=== PATIENT | male | born 1955 ===

== ENCOUNTER 2018-02-22 08:39 | Inpatient (IN) | payer MEDICAID, MEDICARE, OTHER ==
[2018-02-22] MEDS ORDERED: Sodium Chloride 0.9% 1,000 ML IV ONE (09:57)
--- NOTE | 2018-02-22 10:03 | C.PDOC ---
History Of Present Illness 63 y/o male presents to ED for evaluation of right buttock pain radiating down to his leg for the past several months. Pt was evaluated by PMD 2 days ago, was given Ibuprofen and muscle relaxer which he has been taking with improvement of pain. Notes he was recently diagnosed with diabetes, and is also complaining of nausea, vomiting, and unable to eat anything for the last 3 days. Denies diarrhea, abdominal pain, urinary symptoms, fever, or any other associated symptoms at this time. Time Seen by Provider: 02/22/18 09:02 Chief Complaint (Nursing): Lower Extremity Problem/Injury History Per: Patient History/Exam Limitations: no limitations Onset/Duration Of Symptoms: Days Current Symptoms Are (Timing): Still Present Recent travel outside of the [place]: No Additional History Per: Patient Past Medical History Reviewed: Historical Data, Nursing Documentation, Vital Signs Vital Signs: Last Vital Signs Temp 98.4 F 02/22/18 08:50 Pulse 100 H 02/22/18 08:50 Resp 18 02/22/18 08:50 BP 155/80 H 02/22/18 08:50 Pulse Ox 99 02/22/18 08:50 - Medical History PMH: HTN, Kidney Stones (B/L DX ON 12/19/2017) Surgical History: Back Surgery ("DISC SURGERY") Family History: States: Unknown Family Hx - Social History Hx Alcohol Use: No Hx Substance Use: No Review Of Systems Constitutional: Negative for: Fever, Chills Cardiovascular: Negative for: Chest Pain Respiratory: Negative for: Cough, Shortness of Breath Gastrointestinal: Positive for: Nausea, Vomiting. Negative for: Abdominal Pain, Diarrhea Genitourinary: Negative for: Dysuria, Frequency, Incontinence, Hematuria Musculoskeletal: Positive for: Back Pain (right buttock, radiates down right leg) Skin: Negative for: Rash Neurological: Negative for: Weakness, Numbness Physical Exam - Physical Exam Appears: Non-toxic, No Acute Distress Skin: Warm, Dry Head: Atraumatic, Normacephalic Eye(s): bilateral: Normal Inspection Oral Mucosa: Dry, Other (lips chapped) Neck: Supple Chest: Symmetrical Cardiovascular: Rhythm Regular, No Murmur Respiratory: Normal Breath Sounds, No Rales, No Rhonchi, No Wheezing Gastrointestinal/Abdominal: Bowel Sounds, Soft, No Tenderness, No Distention, No Guarding, No Rebound Back: No CVA Tenderness, No Vertebral Tenderness, Paraspinal Tenderness (right sciatic notch tenderness) Extremity: Normal ROM, No Tenderness, No Pedal Edema Pulses: Left Dorsalis Pedis: Normal, Right Dorsalis Pedis: Normal Neurological/Psych: Oriented x3, Normal Speech, Normal Cognition, Normal Motor, Normal Sensation ED Course And Treatment - Laboratory Results Result Diagrams: 02/22/18 10:23 02/22/18 10:23 O2 Sat by Pulse Oximetry: 99 (RA) Pulse Ox Interpretation: Normal Medical Decision Making Medical Decision Making: Given new onset of DM and vomiting will order labs, IV hydration, and Zofran. pt with ketones, elevated beta hydroxybutarate. discussed with Dr Powell, will admit to his service. Disposition Discussed With : Lebron Powell Doctor Will See Patient In The: Hospital - Disposition Disposition: HOSPITALIZED Disposition Time: 11:17 Condition: GOOD - Clinical Impression Clinical Impression: Ketonuria, Dehydration - PA / PHOTOGEOLOGIST / Resident Statement MD/DO has reviewed & agrees with the documentation as recorded. - Scribe Statement The provider has reviewed the documentation as recorded by the Scribe KP All medical record entries made by the Scribe were at my direction and personally dictated by me. I have reviewed the chart and agree that the record accurately reflects my personal performance of the history, physical exam, medical decision making, and the department course for this patient. I have also personally directed, reviewed, and agree with the discharge instructions and disposition.
[2018-02-22] MEDS ORDERED: Sodium Chloride 0.9% 1,000 ML ONE ×2 (10:10→11:26)
[2018-02-22 10:27] LABS: BASO # 0.1 K/uL (0.0-0.2); EOS % 0.3 % (0.0-4.0); LYMPH # 1.7 K/uL (1.0-4.3); LYMPH % 29.1 % (20.0-40.0); MEAN CELL VOLUME 78.4 fL (80.0-94.0); MEAN CORPUSCULAR HEMOGLOBIN 26.2 pg (27.0-31.0); MEAN CORPUSCULAR HGB CONC 33.4 g/dL (33.0-37.0); MEAN PLATELET VOLUME 8.9 fL (7.2-11.7); MONO # 0.4 K/uL (0.0-0.8); MONO % 6.7 % (0.0-10.0); NEUT # 3.6 K/uL (1.8-7.0); NEUT % 62.9 % (50.0-75.0); RBC 5.73 Mil/uL (4.40-5.90); RED CELL DISTRIBUTION WIDTH 13.3 % (11.5-14.5); WHITE BLOOD COUNT 5.8 K/uL (4.8-10.8)
[2018-02-22 10:39] LABS: SQUAMOUS EPITHIAL 1 /hpf (0-5); URINE BACTERIA RARE (<OCC); URINE BILIRUBIN NEGATIVE (NEGATIVE); URINE BLOOD 1+ (NEGATIVE); URINE CLARITY Clear (Clear); URINE COLOR Yellow (YELLOW); URINE GLUCOSE (UA) NORMAL (Normal); URINE LEUKOCYTE ESTERASE NEG Leu/uL (Negative); URINE PROTEIN 1+ mg/dL (NEGATIVE); URINE UROBILINOGEN NORMAL mg/dL (0.2-1.0)
[2018-02-22 10:41] LABS: ALB/GLOB RATIO 1.4 (1.0-2.1); ALBUMIN 4.8 g/dL (3.5-5.0); ALT/SGPT 22 U/L (21-72); AST/SGOT 22 U/L (17-59); BLOOD UREA NITROGEN 17 mg/dL (9-20); CALCIUM 9.8 mg/dl (8.6-10.4); GFR NON-AFRICAN AMERICAN > 60; LIPASE 62 U/L (23-300)
[2018-02-22 10:41] LABS: VENOUS BLOOD GAS PCO2 45 mmHg (40-60); VENOUS BLOOD GAS PO2 20 mm/Hg (30-55); VENOUS BLOOD PH 7.38 (7.32-7.43)
[2018-02-22] MEDS: Sodium Chloride 0.9% 1,000 ML IV SCH ×2 (11:32→21:51)
[2018-02-22] MEDS ORDERED: Glucagon Recombinant 1 mg Inj IM PRN (12:45)
[2018-02-22] MEDS ORDERED: Dextrose 50% SYRINGE Inj (50 ml) IV PRN (12:45)
[2018-02-22] MEDS: (Novolog Mix 70/30) Insulin Aspart/Insulin Aspar 100 units/ml SC SCH ×2 (16:30→23:12)
--- NOTE | 2018-02-22 19:17 | CP.PCM.HP ---
Past Patient History - Past Social History Smoking Status: Never Smoked - CARDIAC Hx Hypertension: Yes - RENAL Hx Kidney Stones: Yes (B/L DX ON 12/19/2017) - PSYCHIATRIC Hx Substance Use: No Meds Allergies/Adverse Reactions: Allergies Allergy/AdvReac Type Severity Reaction Status Date / Time No Known Allergies Allergy Unverified 02/22/18 08:54 Results - Vital Signs Recent Vital Signs: Last Vital Signs Temp 98.5 F 02/22/18 16:00 Pulse 88 02/22/18 16:00 Resp 20 02/22/18 16:00 BP 155/89 H 02/22/18 16:00 Pulse Ox 99 02/22/18 18:22 - Labs Result Diagrams: 02/22/18 10:23 02/22/18 10:23 Labs: Laboratory Results - last 24 hr 02/22/18 02/22/18 02/22/18 10:23 10:23 10:23 WBC 5.8 RBC 5.73 Hgb 15.0 Hct 44.9 MCV 78.4 L MCH 26.2 L MCHC 33.4 RDW 13.3 Plt Count 204 MPV 8.9 Neut % (Auto) 62.9 Lymph % (Auto) 29.1 Cotton % (Auto) 6.7 Eos % (Auto) 0.3 Baso % (Auto) 1.0 Neut # (Auto) 3.6 Lymph # (Auto) 1.7 Cotton # (Auto) 0.4 Eos # (Auto) 0.0 Baso # (Auto) 0.1 pO2 VBG pH VBG pCO2 VBG HCO3 VBG Total CO2 VBG O2 Sat (Calc) VBG Base Excess VBG Potassium Glucose Lactate Sodium 138 Potassium 4.1 Chloride 101 Carbon Dioxide 23 Anion Gap 18 BUN 17 Creatinine 0.8 Est GFR ( Amer) > 60 Est GFR (Non-Af Amer) > 60 Random Glucose 158 H Calcium 9.8 Total Bilirubin 0.6 AST 22 ALT 22 Alkaline Phosphatase 51 Total Protein 8.2 Albumin 4.8 Globulin 3.4 Albumin/Globulin Ratio 1.4 Lipase 62 Venous Blood Potassium Urine Color Yellow Urine Clarity Clear Urine pH 5.0 Ur Specific Mode 1.025 Urine Protein 1+ H Urine Glucose (UA) Normal Urine Ketones 2+ H Urine Blood 1+ H Urine Nitrate Negative Urine Bilirubin Negative Urine Urobilinogen Normal Ur Leukocyte Esterase Neg Urine WBC (Auto) 1 Urine RBC (Auto) 5 H Ur Squamous Epith Cells 1 Urine Bacteria Rare B-Hydroxybutyrate 0.49 H 02/22/18 10:30 WBC RBC Hgb Hct MCV MCH MCHC RDW Plt Count MPV Neut % (Auto) Lymph % (Auto) Cotton % (Auto) Eos % (Auto) Baso % (Auto) Neut # (Auto) Lymph # (Auto) Cotton # (Auto) Eos # (Auto) Baso # (Auto) pO2 20 L VBG pH 7.38 VBG pCO2 45 VBG HCO3 23.9 VBG Total CO2 28.0 VBG O2 Sat (Calc) 40.1 VBG Base Excess 1.0 VBG Potassium 3.8 Glucose 157 H Lactate 1.5 Sodium 137.0 Potassium Chloride 102.0 Carbon Dioxide Anion Gap BUN Creatinine Est GFR ( Amer) Est GFR (Non-Af Amer) Random Glucose Calcium Total Bilirubin AST ALT Alkaline Phosphatase Total Protein Albumin Globulin Albumin/Globulin Ratio Lipase Venous Blood Potassium 3.8 Urine Color Urine Clarity Urine pH Ur Specific Mode Urine Protein Urine Glucose (UA) Urine Ketones Urine Blood Urine Nitrate Urine Bilirubin Urine Urobilinogen Ur Leukocyte Esterase Urine WBC (Auto) Urine RBC (Auto) Ur Squamous Epith Cells Urine Bacteria B-Hydroxybutyrate
--- NOTE | 2018-02-23 06:09 | HP ---
CHIEF COMPLAINT: Intractable low back pain. HISTORY OF PRESENT ILLNESS: This is a 63-year-old male, well known to me with history of diabetes, hypertension, hyperlipidemia; and he came into emergency room for low back pain. He is for abdominal pain which is in the mid back including thoracolumbar area. He denies any trauma. He denies any history of fall or loss of consciousness or any heavy lifting. Pain is persistent, not responding to medication that were prescribed to him on an outpatient basis, and the patient came to the emergency room, and he was hospitalized. He denies any fever or chills. He denies any dysuria, hematuria, or polyuria. He denies any sneezing, itchy eyes, or itchy nose. PAST MEDICAL HISTORY: Diabetes, hypertension, and hyperlipidemia. CURRENT MEDICATIONS AT HOME: Diovan, Mobic, baclofen, and ibuprofen. PHYSICAL EXAMINATION: GENERAL: An elderly male, in moderate distress with back pain. VITAL SIGNS: BP 155/89, pulse 88, respiratory rate 20, temperature 98.5. SKIN: No rashes. No bruises. No purpura. HEENT: Atraumatic, normocephalic. Negative pallor. Negative jaundice. NECK: Supple. No JVD. LUNGS: Clear. CARDIOVASCULAR SYSTEM: S1 and S2 regular. ABDOMEN: Soft and nontender. Bowel sounds are positive. RECTAL: No masses. No bleeds. CENTRAL NERVOUS SYSTEM: Awake, alert, and oriented x3. Cranial nerves II through XII are normal. Power 5/5 x4. Plantars are downgoing. ASSESSMENT: 1. Intractable low back pain. 2. Dehydration, poorly controlled diabetes. 3. Hypertension. PLAN: Admit. Repeat labs. Monitor patient. Lebron Powell MD
[2018-02-23] MEDS: Sodium Chloride 0.9% 1,000 ML IV SCH ×2 (06:30→18:30)
[2018-02-23 08:29] LABS: HEMOGLOBIN 13.6 g/dL (12.0-18.0); MEAN CELL VOLUME 77.6 fL (80.0-94.0); MEAN CORPUSCULAR HEMOGLOBIN 25.6 pg (27.0-31.0); MEAN PLATELET VOLUME 9.1 fL (7.2-11.7); RBC 5.33 Mil/uL (4.40-5.90); RED CELL DISTRIBUTION WIDTH 13.2 % (11.5-14.5); WHITE BLOOD COUNT 4.6 K/uL (4.8-10.8)
[2018-02-23] MEDS: (Novolog Mix 70/30) Insulin Aspart/Insulin Aspar 100 units/ml SC SCH ×3 (08:30→17:59)
[2018-02-23 08:50] LABS: ALB/GLOB RATIO 1.4 (1.0-2.1); ALT/SGPT 17 U/L (21-72); AST/SGOT 20 U/L (17-59); BLOOD UREA NITROGEN 15 mg/dL (9-20); GFR NON-AFRICAN AMERICAN > 60
[2018-02-23] MEDS: Pantoprazole 40 mg EC Tab PO SCH (09:48)
[2018-02-23] MEDS: Enoxaparin 40 mg Syringe SC SCH ×2 (09:48→10:09)
[2018-02-23] MEDS ORDERED: Influenza Vaccine 60 MCG/0.5 ML SYR (3 yr & up) IM ONE (10:00)
[2018-02-23] MEDS ORDERED: Pneumococcal 23-Valent Vaccine IM ONE (10:00)
--- NOTE | 2018-02-23 22:45 | CP.PCM.PN ---
Subjective - Subjective Subjective: dictated Objective - Vital Signs/Intake and Output Vital Signs (last 24 hours): Temp Pulse Resp BP Pulse Ox 99.1 F 82 20 149/87 98 02/23/18 16:00 02/23/18 16:00 02/23/18 16:00 02/23/18 16:00 02/23/18 16:00 Intake and Output: 02/23/18 02/24/18 18:59 06:59 Intake Total 1280 1050 Output Total 850 Balance 1280 200 - Medications Medications: Current Medications Baclofen (Lioresal) 20 mg PO BID [facility] Last Admin: 02/23/18 17:46 Dose: 20 mg Dextrose (Dextrose 50% Inj) 0 ml IV STAT PRN; Protocol PRN Reason: Hypoglycemia Protocol Dextrose (Glutose 15) 0 gm PO ONCE PRN; Protocol PRN Reason: Hypoglycemia Protocol Enoxaparin Sodium (Lovenox) 40 mg SC DAILY [facility] Last Admin: 02/23/18 10:09 Dose: Not Given Glucagon (Glucagen Diagnostic Kit) 0 mg IM STAT PRN; Protocol PRN Reason: Hypoglycemia Protocol Sodium Chloride (Sodium Chloride 0.9%) 1,000 mls @ 100 mls/hr IV .Q10H [facility] Last Admin: 02/23/18 18:30 Dose: 100 mls/hr Dextrose (Dextrose 5% In Water 1000 Ml) 1,000 mls @ 0 mls/hr IV .Q0M PRN; P rotocol PRN Reason: Hypoglycemia Protocol Insulin Aspart (Novolog Mix 70/30 (70/30 Units/Ml)) 0 units SC ACHS [facility]; Protocol Last Admin: 02/23/18 17:59 Dose: Not Given Ketorolac Tromethamine (Toradol) 30 mg IVP Q6 PRN PRN Reason: Pain, moderate (4-7) Last Admin: 02/23/18 09:57 Dose: 30 mg Losartan Potassium (Cozaar) 50 mg PO DAILY [facility] Last Admin: 02/23/18 09:48 Dose: 50 mg Pantoprazole Sodium (Protonix Ec Tab) 40 mg PO DAILY [facility] Last Admin: 02/23/18 09:48 Dose: 40 mg - Labs Labs: 02/23/18 08:17 02/23/18 08:17
--- NOTE | 2018-02-24 02:14 | PN ---
DATE: 02/23/2018 SUBJECTIVE: The patient, Star, is afebrile. Decreased low back pain. Sugars are improved. No nausea or vomiting. No fever. No chills. PHYSICAL EXAMINATION: VITAL SIGNS: BP 149/87, pulse 82, respiratory rate 20, temperature 99.1. LUNGS: Clear. CARDIOVASCULAR SYSTEM: S1 and S2 are regular. ABDOMEN: Soft. BACK: Positive spasm of the lumbosacral spine muscle. CENTRAL NERVOUS SYSTEM: Normal. ASSESSMENT: 1. Intractable low back pain. 2. Diabetes. 3. Hypertension. PLAN: Pain medication. Monitor the patient. Lebron Powell MD
[2018-02-24] MEDS: Sodium Chloride 0.9% 1,000 ML IV SCH (03:14)
[2018-02-24] MEDS: (Novolog Mix 70/30) Insulin Aspart/Insulin Aspar 100 units/ml SC SCH ×4 (07:52→21:46)
[2018-02-24] MEDS: Enoxaparin 40 mg Syringe SC SCH (09:28)
[2018-02-24] MEDS: Pantoprazole 40 mg EC Tab PO SCH (09:29)
[2018-02-24] MEDS: Oxycodone/Acetaminophen 5/325 mg Tab PO PRN (10:05)
--- NOTE | 2018-02-24 23:15 | CP.PCM.PN ---
Subjective - Subjective Subjective: dictated Objective - Vital Signs/Intake and Output Vital Signs (last 24 hours): Temp Pulse Resp BP Pulse Ox 98.4 F 75 20 165/90 H 99 02/24/18 16:00 02/24/18 16:00 02/24/18 16:00 02/24/18 16:00 02/24/18 17:34 Intake and Output: 02/24/1818 18:59 06:59 Intake Total 480 1150 Balance 480 1150 - Medications Medications: Current Medications Baclofen (Lioresal) 20 mg PO BID [facility] Last Admin: 02/24/18 18:31 Dose: 20 mg Dextrose (Dextrose 50% Inj) 0 ml IV STAT PRN; Protocol PRN Reason: Hypoglycemia Protocol Dextrose (Glutose 15) 0 gm PO ONCE PRN; Protocol PRN Reason: Hypoglycemia Protocol Enoxaparin Sodium (Lovenox) 40 mg SC DAILY [facility] Last Admin: 02/24/18 09:28 Dose: 40 mg Glucagon (Glucagen Diagnostic Kit) 0 mg IM STAT PRN; Protocol PRN Reason: Hypoglycemia Protocol Sodium Chloride (Sodium Chloride 0.9%) 1,000 mls @ 100 mls/hr IV .Q10H [facility] Last Admin: 02/24/18 03:14 Dose: 100 mls/hr Dextrose (Dextrose 5% In Water 1000 Ml) 1,000 mls @ 0 mls/hr IV .Q0M PRN; Protocol PRN Reason: Hypoglycemia Protocol Insulin Aspart (Novolog Mix 70/30 (70/30 Units/Ml)) 0 units SC ACHS [facility]; Protocol Last Admin: 02/24/18 21:46 Dose: Not Given Losartan Potassium (Cozaar) 50 mg PO DAILY [facility] Last Admin: 02/24/18 09:29 Dose: 50 mg Oxycodone/Acetaminophen (Percocet 5/325 Mg Tab) 1 tab PO Q6H PRN PRN Reason: Pain, severe (8-10) Stop: 02/27/18 09:18 Last Admin: 02/24/18 10:05 Dose: 1 tab Pantoprazole Sodium (Protonix Ec Tab) 40 mg PO DAILY [facility] Last Admin: 02/24/18 09:29 Dose: 40 mg - Labs Labs: 02/23/18 08:17 02/23/18 08:17
[2018-02-25] MEDS: Sodium Chloride 0.9% 1,000 ML IV SCH ×4 (00:56→17:24)
--- NOTE | 2018-02-25 03:50 | PN ---
DATE: 02/24/2018 SUBJECTIVE: The patient, Star, continues to have back pain. No fever. No chills. PHYSICAL EXAMINATION VITAL SIGNS: BP 165/90, pulse 75, respiratory rate 20, temperature 98.4. LUNGS: Clear. CARDIOVASCULAR SYSTEM: S1 and S2 regular. ABDOMEN: Soft. ASSESSMENT: 1. Intractable low back pain. 2. Hypertension. 3. Type 2 diabetes. PLAN: Continue current medications. MRI of the lumbosacral spine, physical therapy, pain medication. Lebron Powell MD
--- NOTE | 2018-02-25 07:39 | CP.PCM.PN ---
Subjective - Date & Time of Evaluation Date of Evaluation: 02/25/18 Time of Evaluation: 07:39 Objective - Vital Signs/Intake and Output Vital Signs (last 24 hours): Temp Pulse Resp BP Pulse Ox 98.2 F 83 20 143/64 99 02/25/18 00:00 02/25/18 00:00 02/25/18 00:00 02/25/18 00:00 02/25/18 00:00 Intake and Output: 02/25/18 02/25/18 06:59 18:59 Intake Total 2430 Balance 2430 - Medications Medications: Current Medications Baclofen (Lioresal) 20 mg PO BID [facility] Last Admin: 02/24/18 18:31 Dose: 20 mg Dextrose (Dextrose 50% Inj) 0 ml IV STAT PRN; Protocol PRN Reason: Hypoglycemia Protocol Dextrose (Glutose 15) 0 gm PO ONCE PRN; Protocol PRN Reason: Hypoglycemia Protocol Enoxaparin Sodium (Lovenox) 40 mg SC DAILY [facility] Last Admin: 02/24/18 09:28 Dose: 40 mg Glucagon (Glucagen Diagnostic Kit) 0 mg IM STAT PRN; Protocol PRN Reason: Hypoglycemia Protocol Sodium Chloride (Sodium Chloride 0.9%) 1,000 mls @ 100 mls/hr IV .Q10H [facility] Last Admin: 02/25/18 05:33 Dose: 100 mls/hr Dextrose (Dextrose 5% In Water 1000 Ml) 1,000 mls @ 0 mls/hr IV .Q0M PRN; Protocol PRN Reason: Hypoglycemia Protocol Insulin Aspart (Novolog Mix 70/30 (70/30 Units/Ml)) 0 units SC ACHS [facility]; Protocol Last Admin: 02/24/18 21:46 Dose: Not Given Losartan Potassium (Cozaar) 50 mg PO DAILY [facility] Last Admin: 02/24/18 09:29 Dose: 50 mg Oxycodone/Acetaminophen (Percocet 5/325 Mg Tab) 1 tab PO Q6H PRN PRN Reason: Pain, severe (8-10) Stop: 02/27/18 09:18 Last Admin: 02/24/18 10:05 Dose: 1 tab Pantoprazole Sodium (Protonix Ec Tab) 40 mg PO DAILY [facility] Last Admin: 02/24/18 09:29 Dose: 40 mg - Labs Labs: 02/23/18 08:17 02/23/18 08:17
[2018-02-25] MEDS: (Novolog Mix 70/30) Insulin Aspart/Insulin Aspar 100 units/ml SC SCH ×4 (08:37→21:40)
[2018-02-25] MEDS: Pantoprazole 40 mg EC Tab PO SCH (09:20)
[2018-02-25] MEDS: Oxycodone/Acetaminophen 5/325 mg Tab PO PRN ×3 (09:20→22:53)
[2018-02-25] MEDS: Enoxaparin 40 mg Syringe SC SCH (09:20)
--- NOTE | 2018-02-25 12:36 | MRI ---
Date of service: 02/24/2018 PROCEDURE: MR THORACIC SPINE WITHOUT CONTRAST HISTORY: severe back pain COMPARISON: None available. TECHNIQUE: Multiecho multiplanar sequences were performed through the thoracic spine without the use of intravenous contrast. FINDINGS: ALIGNMENT: Normal thoracic spinal alignment. Normal thoracic kyphosis. No spondylolisthesis appreciated throughout. VERTEBRA: Vertebral body heights are preserved diffusely. No suspicious matter signal change identified. PARASPINAL SOFT TISSUES: Unremarkable. CORD: Unremarkable thoracic cord. No volume loss, signal abnormality or syrinx. DISCS: No disc herniation, spinal canal stenosis, or neuroforaminal narrowing. OTHER FINDINGS: None. IMPRESSION: No disc herniation, central canal or neural foraminal stenosis appreciated throughout the thoracic spine. No fracture or spondylolisthesis. No suspicious matter signal abnormality identified.
--- NOTE | 2018-02-25 12:47 | MRI ---
Date of service: 02/24/2018 PROCEDURE: MR LUMBAR SPINE WITHOUT CONTRAST HISTORY: severe back pain with radiation to anne thigh COMPARISON: None available. TECHNIQUE: Multiecho multiplanar sequences were performed through the lumbar spine without the use of intravenous contrast. FINDINGS: Normal lumbar lordosis. Vertebral body heights are preserved. Matter signal is generally unremarkable throughout the upper and mid lumbar spine although advanced endplate degenerative changes are appreciated L4-5 with there is also marked disc height loss. Modic type 2 degenerative endplate signal changes are identified here. Conus medullaris unremarkable at the level of L1. Prevertebral and paraspinal soft tissues are unremarkable. T12-L1: No disc herniation, spinal canal stenosis or neural foraminal narrowing. L1-2: No disc herniation, spinal canal stenosis or neural foraminal narrowing. L2-3: No disc herniation, spinal canal stenosis or neural foraminal narrowing. L3-4: There is a moderately large right paracentral/lateral disc herniation extruded inferiorly posterior to the L4 vertebral body resulting in moderate central stenosis with nearly all the right pamela canal obliterated from the L3-4 disc level down to the middle 3rd of the right epidural space posterior to L4. Nerve roots are displaced toward the left pamela canal beginning at the inferior L3-4 level with recovery of position occurring at L4-5 of the right sided nerve roots. Mild degenerative neural foraminal stenoses are identified as underlying disc bulging is felt to be present at this level in addition. L4-5: No disc herniation. A circumferential disc osteophyte complex combines with gross facet joint degenerative arthropathy the resulting in mild central canal stenosis and [id number] bilateral neural foraminal stenosis slightly greater the left and right sides. L5-S1: No disc herniation. Patient has undergone prior partial left hemilaminectomy/laminotomy decompressing the central canal. No central canal or significant neural foraminal stenosis bilaterally. OTHER FINDINGS: None. IMPRESSION: 1. Moderately large right paracentral/lateral disc herniation L3-4 with extrusion posterior to the right-sided L4 vertebral body causing moderate central canal stenosis. Short of nerve roots are deferred deflected leftward with exception of the far lateral left descending nerve roots. Limited nerve root compression is not completely excluded. Facet arthropathy and underlying circumferential disc bulging results in mild bilateral neural foraminal stenoses on degenerative basis. 2. At L4-5, mild degenerative central canal stenosis identified as well as [id number] bilateral neural foraminal stenoses. 3. Prior left partial laminectomy/laminotomy.
--- NOTE | 2018-02-25 23:04 | CP.PCM.PN ---
Subjective - Subjective Subjective: dictated Objective - Vital Signs/Intake and Output Vital Signs (last 24 hours): Temp Pulse Resp BP Pulse Ox 98.5 F 86 20 139/81 98 02/25/18 15:53 02/25/18 15:53 02/25/18 15:53 02/25/18 15:53 02/25/18 15:53 Intake and Output: 02/25/18 02/26/18 18:59 06:59 Intake Total 600 Balance 600 - Medications Medications: Current Medications Baclofen (Lioresal) 20 mg PO BID [facility] Last Admin: 02/25/18 17:54 Dose: 20 mg Dextrose (Dextrose 50% Inj) 0 ml IV STAT PRN; Protocol PRN Reason: Hypoglycemia Protocol Dextrose (Glutose 15) 0 gm PO ONCE PRN; Protocol PRN Reason: Hypoglycemia Protocol Enoxaparin Sodium (Lovenox) 40 mg SC DAILY [facility] Last Admin: 02/25/18 09:20 Dose: 40 mg Glucagon (Glucagen Diagnostic Kit) 0 mg IM STAT PRN; Protocol PRN Reason: Hypoglycemia Protocol Insulin Aspart (Novolog Mix 70/30 (70/30 Units/Ml)) 0 units SC [facility]; Protocol Last Admin: 02/25/18 21:40 Dose: Not Given Losartan Potassium (Cozaar) 50 mg PO DAILY [facility] Last Admin: 02/25/18 09:20 Dose: 50 mg Oxycodone/Acetaminophen (Percocet 5/325 Mg Tab) 1 tab PO Q6H PRN PRN Reason: Pain, severe (8-10) Stop: 02/27/18 09:18 Last Admin: 02/25/18 22:53 Dose: 1 tab Pantoprazole Sodium (Protonix Ec Tab) 40 mg PO DAILY [facility] Last Admin: 02/25/18 09:20 Dose: 40 mg - Labs Labs: 02/23/18 08:17 02/23/18 08:17
--- NOTE | 2018-02-26 06:15 | PN ---
DATE: 02/25/2018 SUBJECTIVE: The patient has back pain, and his MRI is positive for extensive disk herniation with disk. The patient is afebrile. PHYSICAL EXAMINATION: VITAL SIGNS: BP 130/80, pulse 70, respiratory rate 16, and temperature 99. LUNGS: Clear. ABDOMEN: Soft. ASSESSMENT: 1. Lumbar disk . Pending neurosurgical evaluation. Lebron Powell MD
[2018-02-26] MEDS: (Novolog Mix 70/30) Insulin Aspart/Insulin Aspar 100 units/ml SC SCH ×4 (08:21→21:36)
[2018-02-26] MEDS: Enoxaparin 40 mg Syringe SC SCH (10:13)
[2018-02-26] MEDS: Pantoprazole 40 mg EC Tab PO SCH (10:50)
[2018-02-26] MEDS: Oxycodone/Acetaminophen 5/325 mg Tab PO PRN (10:50)
[2018-02-26 14:03] LABS: BASO % 1.3 % (0.0-2.0); EOS # 0.2 K/uL (0.0-0.7); EOS % 4.7 % (0.0-4.0); HEMOGLOBIN 13.5 g/dL (12.0-18.0); LYMPH # 1.5 K/uL (1.0-4.3); LYMPH % 39.4 % (20.0-40.0); MEAN CELL VOLUME 77.7 fL (80.0-94.0); MEAN CORPUSCULAR HEMOGLOBIN 25.7 pg (27.0-31.0); MEAN CORPUSCULAR HGB CONC 33.1 g/dL (33.0-37.0); MEAN PLATELET VOLUME 8.8 fL (7.2-11.7); MONO # 0.4 K/uL (0.0-0.8); MONO % 9.3 % (0.0-10.0); NEUT # 1.7 K/uL (1.8-7.0); NEUT % 45.3 % (50.0-75.0); NRBC % 0.4 % (0.0-2.0); RBC 5.24 Mil/uL (4.40-5.90); WHITE BLOOD COUNT 3.8 K/uL (4.8-10.8)
[2018-02-26 14:09] LABS: INR 1.2; PROTHROMBIN TIME 13.6 SECONDS (9.7-12.2)
[2018-02-26 14:27] LABS: BLOOD UREA NITROGEN 12 mg/dL (9-20); CALCIUM 9.2 mg/dl (8.6-10.4); GFR NON-AFRICAN AMERICAN > 60
[2018-02-26] MEDS: Sodium Chloride 0.9% 1,000 ML IV SCH (14:44)
--- NOTE | 2018-02-26 15:00 | RAD ---
Date of service: 02/26/2018 PROCEDURE: CHEST RADIOGRAPH, 1 VIEW HISTORY: preop COMPARISON: None available. FINDINGS: LUNGS: Clear. PLEURA: No pneumothorax or pleural fluid seen. CARDIOVASCULAR: No aortic atherosclerotic calcification present. Normal. OSSEOUS STRUCTURES: No significant abnormalities. VISUALIZED UPPER ABDOMEN: Normal. OTHER FINDINGS: None. IMPRESSION: No active disease.
--- NOTE | 2018-02-26 17:17 | CP.PCM.PCO ---
Physician Communication Note - Physician Communication Note Physician Communication Note: Medically Cleared for surgery as per DR Powell
--- NOTE | 2018-02-26 19:35 | CON ---
DATE: 02/26/2018 REASON FOR CONSULTATION: Back and right leg pain. HISTORY OF PRESENT ILLNESS: The patient is a 63-year-old gentleman who states that 3 months ago, he had episode of back pain with radiation to the right leg. It gradually subsided, but 3 weeks ago, he had a recurrent episode even worse than before. He describes the pain is radiating from the buttock area into the anterior thigh, to the knee, and then down the anterior thigh, anterior and medial seymour and towards his ankle. He states his foot feels funny. No pain, but just kind of numb. If he coughs or sneeze, it gets worse. If he stands up, the pain worsens as well. He states the leg has been giving out on him, especially with stair climbing. He was seen by his private doctor a couple of days prior to admission and was given some Motrin muscle relaxer which seems to help, but again he cannot really be active at all. PAST MEDICAL HISTORY: Significant for hypertension. He was recently diagnosed with diabetes as well. FAMILY HISTORY: Does not know of any family history of diabetes. MEDICATIONS: As listed on the chart. ALLERGIES: HE DENIES HAVING ANY ALLERGIES TO ANY MEDICATIONS. PAST SURGICAL HISTORY: Significant for some type of back surgery done more than 20 years ago at [facility] in [place]. He has a history of having kidney stones that evidently was treated with ultrasound treatment at [facility] years ago. PHYSICAL EXAMINATION: On examination, he has a well-healed incision down in the lumbosacral area in the midline. Does not really complain of any tenderness to palpation over the spinous processes itself, but again he describes it more as coming from the right buttock into the leg. No straight leg raise is noted in either side, but femoral stretch, reverse straight leg raising reproduces the pain down the front of his right leg. He has some mild weakness of his right quad, compared to the left. Sensation is intact to light touch throughout. His knee reflexes are depressed a little compared to the left side. No clonus or Babinski is present. He has good distal pulses. IMAGING: MRI was reviewed and it shows an extremely large extruded herniated disc to the right side at the L3-4 level. It is tracking half to almost two-thirds of the way down caudally behind the L4 vertebral body. Nothing really on the left side. He has significant loss of disc at the L4-5 level, but he denies having any issues with his back prior to these episodes. It shows what appears to be a hemilaminotomy on the left side at the L5-S1 level, presumably consistent with his past history of disc surgery. IMPRESSION: Right L4 radiculopathy secondary to the huge extruded herniated disc. This is taking up significant part of his canal with the thecal sac and even coming past midline and some of the axial cuts. I really think the only way of properly treating this is to do a laminotomy/hemilaminectomy and remove this fragment to decompress the thecal sac and especially the L4 root. He wants to discuss this with his family. I explained about the use of preoperative antibiotics as well as neurophysiologic intraoperative monitoring throughout the case. I explained that normally with this situation, 90% of the time he should have significant improvement of the pain in his right leg and allow him to be much more functional than he presently is. Obviously with the degenerative changes he has at L4-5, he may need something else done in the future, but at this point, with no antecedent history of back issues other than his surgery over 20 years ago, I would do simple disc excision and decompress this area and then to start to mobilize him right away. He is going to talk to his family about it. We have held the Lovenox for now. We will tentatively plan this for tomorrow, , the and then proceed from there. Thank you for allowing me to participate in the care of your patient. Fidel Summers MD
--- NOTE | 2018-02-26 21:14 | CP.PCM.PN ---
Subjective - Subjective Subjective: chest pain Objective - Vital Signs/Intake and Output Vital Signs (last 24 hours): Temp Pulse Resp BP Pulse Ox 98.5 F 87 20 145/81 97 02/26/18 16:00 02/26/18 16:00 02/26/18 16:00 02/26/18 16:00 02/26/18 16:00 Intake and Output: 02/26/18 02/27/18 18:59 06:59 Intake Total 1280 Balance 1280 - Medications Medications: Current Medications Baclofen (Lioresal) 20 mg PO BID [facility] Last Admin: 02/26/18 17:30 Dose: 20 mg Dextrose (Dextrose 50% Inj) 0 ml IV STAT PRN; Protocol PRN Reason: Hypoglycemia Protocol Dextrose (Glutose 15) 0 gm PO ONCE PRN; Protocol PRN Reason: Hypoglycemia Protocol Docusate Sodium (Colace) 100 mg PO BID [facility] Last Admin: 02/26/18 17:30 Dose: 100 mg Enoxaparin Sodium (Lovenox) 40 mg SC DAILY [facility] Last Admin: 02/26/18 10:13 Dose: Not Given Glucagon (Glucagen Diagnostic Kit) 0 mg IM STAT PRN; Protocol PRN Reason: Hypoglycemia Protocol Insulin Aspart (Novolog Mix 70/30 (70/30 Units/Ml)) 0 units SC [facility]; Protocol Last Admin: 02/26/18 11:59 Dose: Not Given Losartan Potassium (Cozaar) 50 mg PO DAILY [facility] Last Admin: 02/26/18 10:50 Dose: 50 mg Oxycodone/Acetaminophen (Percocet 5/325 Mg Tab) 1 tab PO Q6H PRN PRN Reason: Pain, severe (8-10) Stop: 02/27/18 09:18 Last Admin: 02/26/18 10:50 Dose: 1 tab Pantoprazole Sodium (Protonix Ec Tab) 40 mg PO DAILY [facility] Last Admin: 02/26/18 10:50 Dose: 40 mg - Labs Labs: 02/26/18 13:53 02/26/18 13:53 PT 13.6 SECONDS (9.7-12.2) H 02/26/18 13:53 INR 1.2 02/26/18 13:53 APTT 31 SECONDS (21-34) 02/26/18 13:53
--- NOTE | 2018-02-27 01:39 | PN ---
DATE: 02/26/2018 SUBJECTIVE: He is afebrile. PHYSICAL EXAMINATION: VITAL SIGNS: Blood pressure 145/81, pulse 87, respiratory rate 20, temperature 98.4. LUNGS: Clear. ABDOMEN: Soft. ASSESSMENT: Back pain. PLAN: Medically stable for OR. Lebron Powell MD
[2018-02-27] MEDS: (Novolog Mix 70/30) Insulin Aspart/Insulin Aspar 100 units/ml SC SCH ×4 (08:22→21:55)
[2018-02-27] MEDS ORDERED: Absorbable Gelatin Sponge Size 100 ONE (09:30)
[2018-02-27] MEDS ORDERED: Bacitracin 50,000 UNIT in Sodium Chloride 0.9% Irrig 1,000 ML IR SCH (09:30)
[2018-02-27] MEDS ORDERED: Vancomycin 1 g Inj ONE (09:30)
[2018-02-27] MEDS ORDERED: Midazolam 2 MG/2 ML VIAL ONE (09:30)
[2018-02-27] MEDS ORDERED: Propofol 10 mg/ml Inj (20 ML) ONE (09:30)
[2018-02-27] MEDS ORDERED: Bupivacaine HCl 0.5% PF (30 ml) Inj ONE (09:31)
[2018-02-27] MEDS ORDERED: Thrombin Topical 20,000 Intl Units Spray Kit TOP ONE (09:32)
[2018-02-27] MEDS ORDERED: Sodium Chloride 0.9% 20 ML IV ONE (09:35)
[2018-02-27] MEDS ORDERED: Succinylcholine Chloride 20 mg/ml Syr (5 ml) IV ONE (09:41)
[2018-02-27] MEDS ORDERED: Propofol 10 mg/ml 1,000 MG/100 ML VIAL ONE (10:12)
[2018-02-27] MEDS ORDERED: ceFAZolin 1 gm FROZEN Premix 2 GM/100 ML ML IVPB ONE (10:16)
[2018-02-27] MEDS ORDERED: Esmolol 100 mg/10ml Inj IV ONE (10:37)
[2018-02-27] MEDS: Lidocaine/Epinephrine 1% 1:100000 10 ML IJ ONE ×2 (10:41→10:43)
[2018-02-27] MEDS: Pantoprazole 40 mg EC Tab PO SCH (11:00)
[2018-02-27] MEDS ORDERED: HYDROmorphone 0.5 mg/0.5 ml ISec IVP PRN (11:48)
--- NOTE | 2018-02-27 11:56 | PCM.OP ---
Operative Report - Operative Report Date of Surgery/Procedure: 02/27/18 Time of Surgery/Procedure: 10:45 Surgeon: Kristopher Community Fundraiser: Molly Anesthesia/Sedation: Gen w ET
--- NOTE | 2018-02-27 11:59 | PCM.OP ---
Operative Report - Operative Report Date of Surgery/Procedure: 02/27/18 Time of Surgery/Procedure: 10:45 Surgeon: Kristopher Supervisor [place] Department: Molly Anesthesia/Sedation: Gen w ET Pre-Operative Diagnosis: Extruded HNP L3-4 Post-Operative Diagnosis: Same Indication for Surgery: Pain Operative Findings: Large extruded fragment Procedure/Operation Description: Exc HNP R L3-4 Estimated Blood Loss: 50cc Complications: None Discharge & Condition: Stable
[2018-02-27] MEDS: Sodium Chloride 0.45% 1,000 ML IV SCH ×3 (12:00→22:00)
[2018-02-27] MEDS ORDERED: Oxycodone/Acetaminophen 5/325 mg Tab PO PRN (12:00)
[2018-02-27] MEDS ORDERED: HYDROmorphone 1 mg/ml ISec IVP PRN (12:05)
--- NOTE | 2018-02-27 12:48 | CARD ---
APPROVED REPORT Date of service: 02/26/2018 EKG Measurement Heart [id number] <Conclusion> Normal sinus rhythm Normal ECG
--- NOTE | 2018-02-27 13:26 | RAD ---
Date of service: 02/27/2018 PROCEDURE: Intraoperative Fluoroscopy. HISTORY: HERNIATED DISC FINDINGS: Fluoroscopic assistance was provided. Fluoroscopy time = 8.8 sec. Radiation dose = 3.23 mGy. Please refer to the operative report from TORY Sloan.
[2018-02-27 16:25] VITALS: RESP 20
--- NOTE | 2018-02-27 21:25 | CP.PCM.PN ---
Subjective - Subjective Subjective: dictated Objective - Vital Signs/Intake and Output Vital Signs (last 24 hours): Temp Pulse Resp BP Pulse Ox 98.6 F 93 H 20 154/81 H 98 02/27/18 16:00 02/27/18 16:00 02/27/18 16:00 02/27/18 16:00 02/27/18 16:00 Intake and Output: 02/27/18 02/28/18 18:59 06:59 Intake Total 1150 Output Total 300 Balance 850 - Medications Medications: Current Medications Baclofen (Lioresal) 20 mg PO BID [facility] Last Admin: 02/27/18 17:52 Dose: 20 mg Dextrose (Dextrose 50% Inj) 0 ml IV STAT PRN; Protocol PRN Reason: Hypoglycemia Protocol Dextrose (Glutose 15) 0 gm PO ONCE PRN; Protocol PRN Reason: Hypoglycemia Protocol Docusate Sodium (Colace) 100 mg PO BID [facility] Last Admin: 02/27/18 17:52 Dose: 100 mg Enoxaparin Sodium (Lovenox) 40 mg SC DAILY [facility] Last Admin: 02/26/18 10:13 Dose: Not Given Glucagon (Glucagen Diagnostic Kit) 0 mg IM STAT PRN; Protocol PRN Reason: Hypoglycemia Protocol Hydromorphone HCl (Dilaudid) 0.5 mg IVP Q15M PRN PRN Reason: Pain, severe (8-10) Last Admin: 02/27/18 12:05 Dose: 0.5 mg Hydromorphone HCl (Dilaudid) 1 mg IVP Q4H PRN PRN Reason: Pain, severe (8-10) Sodium Chloride (Sodium Chloride 0.45%) 1,000 mls @ 100 mls/hr IV .Q10H [facility] Last Admin: 02/27/18 13:30 Dose: 100 mls/hr Insulin Aspart (Novolog Mix 70/30 (70/30 Units/Ml)) 0 units SC [facility]S [facility]; Protocol Last Admin: 02/27/18 17:53 Dose: Not Given Ketorolac Tromethamine (Toradol) 30 mg IVP Q6 [facility] Stop: 03/04/18 12:01 Last Admin: 02/27/18 17:54 Dose: 30 mg Losartan Potassium (Cozaar) 50 mg PO DAILY [facility] Last Admin: 02/27/18 14:00 Dose: 50 mg Oxycodone/Acetaminophen (Percocet 5/325 Mg Tab) 1 tab PO Q4H PRN PRN Reason: Pain, Mild (1-3) Stop: 03/02/18 12:01 Pantoprazole Sodium (Protonix Ec Tab) 40 mg PO DAILY [facility] Last Admin: 02/27/18 11:00 Dose: Not Given - Labs Labs: 02/26/18 13:53 02/26/18 13:53 PT 13.6 SECONDS (9.7-12.2) H 02/26/18 13:53 INR 1.2 02/26/18 13:53 APTT 31 SECONDS (21-34) 02/26/18 13:53
--- NOTE | 2018-02-28 00:35 | PN ---
DATE: 02/27/2018 SUBJECTIVE: The patient OR. He is afebrile. No shortness of breath. No chest pain. The patient underwent OR. PHYSICAL EXAMINATION: VITAL SIGNS: BP 154/81, pulse 93, respiratory rate 20, temperature 98.6. LUNGS: Clear. CARDIOVASCULAR SYSTEM: S1, S2 regular. ABDOMEN: Soft. ASSESSMENT: Lumbar disc disease status post operative room, diabetes, hypertension. PLAN: Medical management. Monitor patient. Lebron Powell MD
--- NOTE | 2018-02-28 07:51 | OP ---
PROCEDURE DATE: 02/27/2018 PREOPERATIVE DIAGNOSIS: Extruded herniated disk right L3-4 with right lumbar radiculopathy. POSTOPERATIVE DIAGNOSIS: Extruded herniated disk right L3-4 with right lumbar radiculopathy. OPERATION: Hemilaminotomy with excision of herniated disk, right L3-4. SURGEON: Fidel Summers MD MANAGEMENT COORDINATOR: Claudio Barnes MD ANESTHESIA: General endotracheal tube intubation. DESCRIPTION OF PROCEDURE: The patient was brought to the operating room. General anesthesia was achieved. Intravenous antibiotics were administered and spinal cord monitor leads were placed throughout the patient's body. Real time monitoring was done by a critical power install technician in room. Remote monitoring done by a physician as well. Sequential compression boots were placed in each of the patient's legs. The patient was then gently transferred onto the operating table and placed prone on a Davy frame keeping his abdomen free from pressure anteriorly. Care was taken to protect his elbows and knees from pressure points and a sterile drape was used to seal off the patient's perineal region from the operative field. His back was then sterilely prepped and draped. Level of the incision was noted under fluoroscopy and infiltrated with lidocaine with epinephrine. Incision was made sharply in the midline and taken out through subcutaneous tissue using sharp and blunt dissection. Hemostasis was achieved using electrocautery. The fascia was divided and stripped laterally on the right side off the spinous processes and lamina out to level of facet joint. Tissues were held back with a Padmini retractor around the facet joint. A fluoroscopic view was taken which confirmed we were just below the L3-L4 disk. Hemilaminotomy was then carried out using Kerrison rongeurs. The operating microscope was brought onto the field. The rest of decompression done under microscopic visualization. The hemilaminotomy was carried out further laterally as we knew from the preoperative studies at the thecal sac was being pushed under a lot of tension. We identified the edge of the thecal sac along with the traversing right L4 nerve root. As that was gently retracted, her extruded herniated disk material could be seen. Pituitary rongeur was used to remove extremely large extruded fragment. Once that was done, there was no further tension on the thecal sac nor the L4 root. We could easily pass a Diana tool along the ventral surface of the sac, both below and above the nerve root itself without any difficulty. The wound was copiously irrigated with antibiotic solution. Hemostasis was achieved with bipolar cautery as well as thrombinated Gelfoam powder. The wound was then closed in layers with interrupted sutures of 0 Vicryl for the fascia and the deep subcutaneous tissue. After further antibiotic irrigation, 2-0 Vicryl interrupted sutures were used to close the remaining subcutaneous tissue, and the skin was approximated with running subcuticular suture of 3-0 Monocryl. Dermabond was used to seal the closure. Once that was dry, an island dressing was applied. The patient was then gently transferred back onto his bed in the supine position. He was awakened and extubated. He was then taken to recovery room in stable condition. He tolerated the procedure well. Estimated blood loss was 25 to 50 mL. He received 600 mL of crystalloid during the operation. He was actively moving all extremities at the time of the transfer and no permanent electrophysiologic abnormalities were noted at the completion of the case. Fidel Summers MD [email or web address]
[2018-02-28 07:56] VITALS: BP 137/83; PULSE 110; TEMP 98; O2SAT 98
[2018-02-28] MEDS: (Novolog Mix 70/30) Insulin Aspart/Insulin Aspar 100 units/ml SC SCH ×2 (08:30→12:20)
[2018-02-28] MEDS: Sodium Chloride 0.45% 1,000 ML IV SCH (09:00)
[2018-02-28] MEDS: Pantoprazole 40 mg EC Tab PO SCH (10:19)
--- NOTE | 2018-02-28 17:07 | CP.PCM.PN ---
Subjective - Date & Time of Evaluation Date of Evaluation: 02/28/18 Time of Evaluation: 11:00 - Subjective Subjective: alert, oriented x3, able to walk with physical therapyst, no acute distress. Objective - Vital Signs/Intake and Output Vital Signs (last 24 hours): Temp Pulse Resp BP Pulse Ox 98.0 F 110 H 20 137/83 98 02/28/18 07:55 02/28/18 07:55 02/28/18 07:55 02/28/18 07:55 02/28/18 07:55 Intake and Output: 02/28/18 02/28/18 06:59 18:59 Intake Total 1100 1979 Balance 1100 1979 - Labs Labs: 02/26/18 13:53 02/26/18 13:53 PT 13.6 SECONDS (9.7-12.2) H 02/26/18 13:53 INR 1.2 02/26/18 13:53 APTT 31 SECONDS (21-34) 02/26/18 13:53 Assessment and Plan - Assessment and Plan (Free Text) Assessment: 63 year old male admitted with dehydration, severe low back pain , s/p herniated disk resection seen and examined. Alert and orientedx3, denies acute pain, walking with physical therapyst with minimal pain. Cleared by neurosurgery for discharge home. Discussed with DR Powell, plan to discharge home today and a dvised to follow up in the office in 1 week. Advised outpatient physical therapy 3x a week as tolerated.
== END 2018-02-28 14:48 | disposition home or self-care (01) | DRG 520 ==
LOC: C.ER 08:39 → C.3T 11:18 → OBSVTOIN 02-25 13:30 → C.3T 02-27 22:23
PROVIDERS: ADMIT Internal Medicine; ATTEND Internal Medicine
PROC: 0SB20ZZ Excision of Lumbar Vertebral Disc, Open Approach (ICD-10-PCS; principal; 2018-02-27 10:00)
DX: M51.16 Intervertebral disc disorders with radiculopathy, lumbar region (principal); I10 Essential (primary) hypertension; E86.0 Dehydration; E78.5 Hyperlipidemia, unspecified; E11.65 Type 2 diabetes mellitus with hyperglycemia; Z79.4 Long term (current) use of insulin